=== PATIENT | female | born 1990 | race Caucasian/White ===

== ENCOUNTER 2021-11-10 01:38 | Emergency (ER) | payer MEDICAID, OTHER ==
[~2021-11-10] VITALS: Ht 160 cm; Wt 61.3 kg
[2021-11-10 02:25] LABS: Urine Bacteria NONE SEEN /hpf (None Seen); Urine Blood 3+ /uL (Negative); Urine Mucus FEW (None Seen); Urine WBC 2243 /hpf (0 - 5)
[2021-11-10 02:27] LABS: Urine Specific Gravity 1.032 (1.001-1.035)
[2021-11-10 02:39] LABS: Basophils # (auto) 0 10 ^3/uL (0-0.2); Basophils % (auto) 0.3 % (0.0-2.0); Eosinophils # (auto) 0.1 10 ^3/uL (0-0.8); Eosinophils % (auto) 0.9 % (0.0-7.0); Hematocrit 40.5 % (36.0-46.0); Lymphocytes # (auto) 2.5 10 ^3/uL (0.4-5.4); Lymphocytes % (auto) 30.2 % (10.0-50.0); Mean Corpuscular Hgb Conc. 32.2 g/dL (32.0-36.0); Monocytes # (auto) 0.7 10 ^3/uL (0-1.3); Monocytes % (auto) 8.1 % (0.0-12.0); Neutrophils # (auto) 5.1 10 ^3/uL (1.6-8.6); Neutrophils % (auto) 60.5 % (37.0-80.0); Red Cell Distribution Width 13.8 % (11.8-14.3); White Blood Cell 8.4 10^3/uL (4.4-10.8)
[2021-11-10 02:57] LABS: Albumin 3.6 g/dL (3.4-5.0); BUN/Creatinine Ratio 22.9; Calcium 8.7 mg/dL (8.5-10.1); Potassium 3.7 mmol/L (3.5-5.1)
[2021-11-10 02:59] LABS: Bilirubin, Total 0.2 mg/dL (0.2-1.0)
[2021-11-10] MEDS ORDERED: cefTRIAXone 1GM/50ML D5W 50 ML IV ONE (04:15)
[2021-11-10] MEDS ORDERED: SODIUM CHLORIDE 0.9% 1,000 ML IV ONE (04:15)
[2021-11-10] MEDS: ONDANSETRON HCL 4 MG/2 ML VIAL IV ONE ×2 (04:42→04:49)
[2021-11-10 08:00] VITALS: BP 107/73
[2021-11-10] MEDS ORDERED: CEPH-509 PO (08:14)
== END 2021-11-10 09:27 | disposition home or self-care (01) ==
LOC: ER 01:38
DX: N39.0 Urinary tract infection, site not specified (principal); E86.0 Dehydration; N93.9 Abnormal uterine and vaginal bleeding, unspecified; Z79.899 Other long term (current) drug therapy; Z88.5 Allergy status to narcotic agent; Z88.8 Allergy status to other drugs, medicaments and biological substances; Z91.040 Latex allergy status
CPT/HCPCS: 36415; 74176; 80053; 81001; 83605; 83690; 85025; 86850; 86900; 86901; 96365; 96375; 99285; J0696; J2405; J7030

== ENCOUNTER 2022-01-10 21:01 | Emergency (ER) | payer MEDICAID ==
[~2022-01-10] VITALS: Ht 152.4 cm; Wt 62.0 kg
[~2022-01-10 21:01] MED LIST: CEPH-509 PO
[2022-01-10 23:39] LABS: Basophils # (auto) 0 10 ^3/uL (0-0.2); Basophils % (auto) 0.5 % (0.0-2.0); Eosinophils # (auto) 0.1 10 ^3/uL (0-0.8); Eosinophils % (auto) 1.5 % (0.0-7.0); Hematocrit 41.9 % (36.0-46.0); Hemoglobin 13.5 g/dL (12.2-16.2); Lymphocytes # (auto) 1.9 10 ^3/uL (0.4-5.4); Lymphocytes % (auto) 34.1 % (10.0-50.0); Mean Corpuscular Hemoglobin 28.5 pg (28.0-32.0); Mean Corpuscular Hgb Conc. 32.1 g/dL (32.0-36.0); Mean Corpuscular Volume 88.7 fL (80.0-100.0); Monocytes # (auto) 0.3 10 ^3/uL (0-1.3); Neutrophils # (auto) 3.3 10 ^3/uL (1.6-8.6); Neutrophils % (auto) 58.9 % (37.0-80.0); Nucleated Red Blood Cells % 0.1 %; Red Blood Cells 4.72 10^6/uL (4.0-5.20); White Blood Cell 5.6 10^3/uL (4.4-10.8)
[2022-01-11 00:02] LABS: Albumin 3.8 g/dL (3.4-5.0); Calcium 8.2 mg/dL (8.5-10.1); Potassium 4.2 mmol/L (3.5-5.1)
[2022-01-11 00:04] LABS: BUN/Creatinine Ratio 27.5
[2022-01-11 00:07] LABS: Bilirubin, Total 0.2 mg/dL (0.2-1.0)
[2022-01-11 00:22] LABS: Urine Bacteria NONE SEEN /hpf (None Seen); Urine Blood 2+ /uL (Negative); Urine Mucus FEW (None Seen); Urine Specific Gravity 1.023 (1.001-1.035); Urine WBC 585 /hpf (0 - 5); Urine WBC Clumps PRESENT /hpf (None Seen)
[2022-01-11] MEDS ORDERED: ACETAMINOPHEN 325 MG TAB PO ONE (03:00)
[2022-01-11] MEDS ORDERED: SODIUM CHLORIDE 0.9% 500 ML IV ONE (03:30)
[2022-01-11] MEDS ORDERED: cefTRIAXone 1GM/50ML D5W 50 ML IV ONE (03:30)
[2022-01-11] MEDS ORDERED: ALPRAZolam 0.5 MG TAB PO ONE (04:15)
[2022-01-11 06:18] VITALS: BP 111/70
== END 2022-01-11 06:46 | disposition short-term general hospital (02) ==
LOC: ER 21:01
DX: T85.09XA Other mechanical complication of ventricular intracranial (communicating) shunt, initial encounter (principal); H53.8 Other visual disturbances; G91.9 Hydrocephalus, unspecified; R51.9 Headache, unspecified
CPT/HCPCS: 36415; 70450; 71045; 80053; 81001; 81025; 84484; 85025; 96365; 99285; J0696; J7030

== ENCOUNTER 2023-10-11 00:23 | Emergency (ER) | payer MEDICAID ==
[~2023-10-11] VITALS: Ht 152.4 cm; Wt 65.9 kg
[2023-10-11] MEDS: KETOROLAC TROMETH 60MG/2ML VIAL IM ONE (01:31)
[2023-10-11] MEDS: ACETAMINOPHEN 500 MG TAB PO ONE (01:31)
[2023-10-11] MEDS ORDERED: IBUP-1455 PO (02:19)
[2023-10-11] MEDS ORDERED: ACET500T58 PO (02:19)
[2023-10-11 02:29] VITALS: BP 113/75; PULSE 118; RESP 16; TEMP 99.1; O2SAT 100
== END 2023-10-11 02:24 | disposition home or self-care (01) ==
LOC: ER 00:23
DX: L55.0 Sunburn of first degree (principal); Z88.6 Allergy status to analgesic agent; Z91.040 Latex allergy status
CPT/HCPCS: 16000; 96372; 99283; J1885